=== PATIENT | female | born 1975 | race Caucasian/White ===

== ENCOUNTER → 2017-02-08 | Day surgery (SDC) | payer OTHER ==
[~2017-02-08] MED LIST: LACTATED RINGER'S 1000 ML INJ 1,000 ML ONE; PROPOFOL 200 MG/20 ML AMP IV ONE
--- NOTE | 2017-02-08 09:57 | GIPROC ---
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 TOPICAL ANESTHETIC: none CONSENT: The patient understands the risks and benefits of the procedure and understands that these risks include, but are not limited to: sedation, allergic reaction, infection, perforation and/or bleeding. Alternative means of evaluation and treatment include, among others: physical exam, x-rays, and/or surgical intervention. The patient elects to proceed with this endoscopic procedure. medical equipment was checked for proper function. Hand hygiene and appropriate measures for infection prevention was taken. After the risks, benefits and alternatives of the procedure were thoroughly explained, Informed consent was verified, confirmed and timeout was successfully executed by the treatment team. The patient was anesthetized with topical anesthesia and the EG-[id number] ([id number]) endoscope was introduced through the mouth and advanced to the second portion of the duodenum. Retroflexed views revealed a hiatal hernia The gastroscope was then slowly withdrawn and removed. Gastritis antrum-biopsy esophagitis distal esophagus -biopsy. ADVERSE EVENTS: There were no complications. IMPRESSIONS: 1. Gastritis antrum-biopsy esophagitis distal esophagus -biopsy 2. Retroflexed views revealed a hiatal hernia RECOMMENDATIONS: 1. Await biopsy results. Biopsy results will not be ready for 7-10 days. If you don't hear from us in two weeks, call our office for biopsy results. 2. Anti-reflux regimen 3. Avoid NSAIDS 4. Ok for surgery from gi point PATIENT CONDITION: stable DISPOSITION: Home REPEAT EXAM: Return 3 years EGD Nehal Rosales MD eSigned: Nehal Rosales MD 02/08/2017 9:57 AM cc: Libra Shetty [facility] Kendal Ahmadi M.D. PATIENT NAME: Jeniffer Kay MR#: [id number]
== END | disposition home or self-care (01) ==
LOC: ESDC 08:04
PROVIDERS: ATTEND Internal Medicine Gastroenterology
DX: K29.70 Gastritis, unspecified, without bleeding (principal); K20.9 Esophagitis, unspecified; K44.9 Diaphragmatic hernia without obstruction or gangrene
CPT/HCPCS: 00740; 43239; 88305; 88312; J3010; J7120

== ENCOUNTER 2017-03-24 05:13 | Inpatient (IN) | payer OTHER ==
[~2017-03-24] VITALS: Ht 162.6 cm; Wt 132.7 kg
[~2017-03-24 05:13] MED LIST changes: +ACETA500 PO; +BUPR150CR PO; +CETI10 PO; -LACTATED RINGER'S 1000 ML INJ 1,000 ML ONE; -PROPOFOL 200 MG/20 ML AMP IV ONE; +PROT40TA PO
[2017-03-24] MEDS ORDERED: ONDANSETRON HCL 4 MG/2 ML VIAL IV PUSH SCH (06:15)
[2017-03-24] MEDS ORDERED: LACTATED RINGER'S 1000 ML IV PRN (06:15)
[2017-03-24] MEDS ORDERED: POVIDONE IODINE 5% (ANTISEPSIS KIT) 4 APPLICATIONS EACH NARE PRN (06:15)
[2017-03-24] MEDS ORDERED: VANCOMYCIN 1,250 MG/NS 250 ML (for 70-84 kg) IV SCH ×2 (06:15)
[2017-03-24] MEDS ORDERED: metroNIDAZOLE 500 MG INJ 100 ML IV SCH (06:15)
[2017-03-24] MEDS ORDERED: SODIUM CHLORID 0.9% 500 ML IV PRN (06:15)
[2017-03-24] MEDS ORDERED: SCOPOLAMINE 1.5 MG PATCH T-DERMAL SCH (06:15)
[2017-03-24] MEDS ORDERED: METOPROLOL TARTRATE 25 MG TAB PO PRN (06:15)
[2017-03-24] MEDS ORDERED: CHLORHEXIDINE GLUCONATE 2 % 1 PACK (2 CLOTHS) TOPICAL PRN (06:15)
[2017-03-24] MEDS ORDERED: ACETAMINOPHEN 1000 MG/100 ML 100 ML IV SCH (06:15)
[2017-03-24] MEDS ORDERED: APREPITANT 40 MG CAP PO SCH (06:15)
[2017-03-24] MEDS ORDERED: BUPIVACAINE/EPINEPHRINE 0.25% 50 ML VIAL ONE (09:42)
[2017-03-24] MEDS ORDERED: METHYLENE BLUE 10 MG/ML VIAL OTHER ONE (11:23)
[2017-03-24] MEDS ORDERED: ENALAPRILAT 1.25 MG/ML VIAL IV PUSH PRN (12:15)
[2017-03-24] MEDS ORDERED: ACETAMINOPHEN 325MG/HYDROcodone 7.5MG/15ML UDC PO PRN ×2 (12:15)
[2017-03-24] MEDS ORDERED: diphenhydrAMINE HCL ELIXIR 12.5 MG/5 ML CUP PO PRN (12:15)
[2017-03-24] MEDS ORDERED: ONDANSETRON HCL 4 MG/2 ML VIAL IV PUSH PRN (12:15)
[2017-03-24] MEDS ORDERED: NALOXONE HCL 0.4 MG/ML AMP IV PUSH PRN (12:15)
[2017-03-24] MEDS ORDERED: MORPHINE SULFATE 30 MG/30 ML PCA IV SCH (12:15)
[2017-03-24] MEDS ORDERED: diphenhydrAMINE HCL 50 MG/ML VIAL IV PUSH PRN (12:15)
[2017-03-24] MEDS ORDERED: SODIUM CHLORIDE 0.9% FLUSH 10 ML FLUSH IV FLUSH PRN (12:15)
[2017-03-24] MEDS ORDERED: Post-op Orders (for Pharmacy) MISC OTHER ONE (12:33)
[2017-03-24] MEDS ORDERED: *RESP: ALBUTEROL 2.5 MG/3 ML NEB (PRN) PERIprocedural Use ONLY NEB ONE (12:57)
[2017-03-24] MEDS: D5-1/2 NS + KCL 20 MEQ INJ 1,000 ML IV SCH ×2 (13:30→21:03)
[2017-03-24] MEDS: METOCLOPRAMIDE HCL 10 MG/2 ML VIAL IV PUSH SCH ×2 (14:00→21:01)
[2017-03-24] MEDS ORDERED: DO NOT ADM ANY ANTICOAGULANT DRUGS PRN (15:15)
[2017-03-24] MEDS: RESP: ALBUTEROL 2.5 MG/3 ML NEB (SCH) INH ×2 (16:00→19:52)
[2017-03-24] MEDS ORDERED: ENOXAPARIN SODIUM 40 MG/0.4 ML SYRINGE SQ SCH (17:00)
[2017-03-24 17:37] VITALS: BP 107/52; PULSE 89; RESP 17; TEMP 98; O2SAT 95
[2017-03-24] MEDS: metroNIDAZOLE 500 MG INJ 100 ML IV SCH (18:01)
[2017-03-24 19:52] VITALS: O2SAT 95
[2017-03-24 20:00] VITALS: BP 99/56; PULSE 102; RESP 20; TEMP 97.9; O2SAT 97
[2017-03-24] MEDS: SODIUM CHLORIDE 0.9% FLUSH 10 ML FLUSH IV FLUSH SCH (21:00)
[2017-03-24] MEDS: PCA - TOTAL MG MORPHINE DELIVERED PER SHIFT SCH (22:00)
--- NOTE | 2017-03-24 22:22 | MP ---
cc: JETT BARRETO LARS S. MD DATE OF SURGERY 03/24/2017 DATE OF 1975 PREOPERATIVE DIAGNOSIS Morbid obesity with BMI of 50 complicated by dyslipidemia, gastroesophageal reflux disease. POSTOPERATIVE DIAGNOSIS Morbid obesity with BMI of 50 complicated by dyslipidemia, gastroesophageal reflux disease. PROCEDURE Laparoscopic Klaus-en-Y gastric bypass 100 cm Klaus limb antegastric antecolic. SURGEON Jett Barreto MD GIFTED PROGRAM TEACHER MD Dr. Gulshan Villegas's assistance was necessary for the procedure due to the complexity of the procedure. Dr. Gaffney was present for the entire procedure. He assisted in manipulation and exposure during the procedure. The operations and intelligence assistant provided by [employer] was utilized managing the camera during the procedure. ANESTHESIA General endotracheal anesthesia ESTIMATED BLOOD LOSS Scant FINDINGS Fatty liver SPECIMENS None COMPLICATIONS None OPERATION The patient was brought to the operating room and placed on the operating table in supine position, bilateral sequential inflation device placed on lower extremities, general anesthesia instituted, antibiotics initiated. The abdomen was prepped and draped sterilely. A point 18-cm distal to the xiphoid in the midline anesthetized with 0.25% Marcaine with epinephrine. The skin incision was made, a 5-mm OptiView port placed under direct vision and pneumoperitoneum was created. Under direct vision a 5-mm left upper quadrant, 12-mm left upper quadrant, 12-mm right upper quadrant and 5-mm right upper quadrant ports were placed. Prior to placement of all ports, the skin and peritoneum were anesthetized with 0.25% Marcaine with epinephrine. The patient's omentum was lifted into the upper abdomen. It was split down the middle to create a path for the Klaus limb. The ligament of Treitz was identified, a point 40 cm distal identified. The small bowel was divided in this region using an [place] Flex stapler vascular load reinforced with SeamGuard. The distal segment was brought up for a distance of 100 cm, enterotomy created in this region, enterotomy in the biliopancreatic limb and a [id number] stapled jejunojejunostomy created in the usual manner. The mesenteric defect at the jejunojejunostomy was closed with 2-0 Surgidac suture in a running manner. The patient was placed in reverse Trendelenburg position with the left side up. The Rochelle-Flex retractor was placed. The left lobe of the liver was retracted. The angle of His was taken down bluntly, a point 5 cm distal to the GE junction along the lesser curve identified, the lesser sac entered using blunt dissection. The stomach was partitioned horizontally using an [place]-Flex stapler blue load, an additional firing taken directed towards the angle of His to completely divide the stomach. A gastrotomy created in the new stomach, enterotomy in the Klaus limb and gastrojejunostomy created, stomal opening of 2 cm. An 18-Indonesian OG tube was placed across the anastomosis, the defect then closed in two layers of running 2-0 Vicryl. Prior to placement of the second layer, methylene blue instilled through the OG tube. There was no evidence of extravasation. Evicel was then placed over the gastrojejunostomy, jejunojejunostomy and all staple lines. The operative field inspected and hemostasis was present. The CO2 was released, all ports were removed. All skin incisions were closed with 4-0 Monocryl. The abdominal wall was cleaned and a sterile dressing placed. The patient was awakened and taken to the recovery room. MD TAHIR Gomez/CARLOS /4:34 PM /10:09 PM
[2017-03-24] MEDS: VANCOMYCIN INJ 1,000 MG in SODIUM CHLOR 0.9% 250 ML INJ 250 ML IV SCH (23:35)
[2017-03-25] VITALS (7 sets, daily range): BP systolic 88–122; BP diastolic 51–59; PULSE 87–94; RESP 17–20; TEMP 97.6–98.1; O2SAT 94–99
[2017-03-25] MEDS: RESP: ALBUTEROL 2.5 MG/3 ML NEB (SCH) INH ×4 (00:18→11:57)
[2017-03-25] MEDS: METOCLOPRAMIDE HCL 10 MG/2 ML VIAL IV PUSH SCH ×2 (02:31→09:59)
[2017-03-25] MEDS: metroNIDAZOLE 500 MG INJ 100 ML IV SCH ×2 (02:32→12:20)
[2017-03-25] MEDS: PCA - TOTAL MG MORPHINE DELIVERED PER SHIFT SCH (06:00)
[2017-03-25] MEDS: D5-1/2 NS + KCL 20 MEQ INJ 1,000 ML IV SCH ×2 (06:33→12:09)
[2017-03-25 07:38] LABS: AUTOMATED NEUTROPHIL # 8.3 TH/MM3 (1.8-7.7); BASOPHIL % 0.2 % (0.0-2.0); HEMO FLAGS DIFF FINAL; LYMPH % 13.9 % (9.0-44.0); LYMPHOCYTE # 1.4 TH/MM3 (1.0-4.8); MEAN CELL VOLUME 90.3 FL (80.0-100.0); MEAN CORPUSCULAR HEMOGLOBIN 30.4 PG (27.0-34.0); MEAN CORPUSCULAR HGB CONC 33.7 % (32.0-36.0); MONO % 6.5 % (0.0-8.0); NEUT % 79.4 % (16.0-70.0); PLATELET COUNT 195 TH/MM3 (150-450); RED BLOOD COUNT 3.77 MIL/MM3 (4.00-5.30); RED CELL DISTRIBUTION WIDTH 13.4 % (11.6-17.2); WHITE BLOOD COUNT 10.4 TH/MM3 (4.0-11.0)
[2017-03-25 07:52] LABS: BICARBONATE 22.9 MEQ/L (21.0-32.0); POTASSIUM 3.7 MEQ/L (3.5-5.1)
[2017-03-25] MEDS ORDERED: PANTOPRAZOLE SOD 40 MG DELAYED RELEASE TAB PO SCH (09:00)
[2017-03-25] MEDS: SODIUM CHLORIDE 0.9% FLUSH 10 ML FLUSH IV FLUSH SCH (10:00)
[2017-03-25] MEDS ORDERED: buPROPion HCL 150 MG SUSTAINED RELEASE TAB PO SCH (10:00)
[2017-03-25] MEDS: VANCOMYCIN INJ 1,000 MG in SODIUM CHLOR 0.9% 250 ML INJ 250 ML IV SCH (12:21)
[2017-03-25] MEDS ORDERED: METOCLOPRAMIDE HCL 10 MG/2 ML VIAL IV PUSH PRN (13:00)
--- NOTE | 2017-03-25 13:30 | HHI.PR ---
Subjective Subjective Notes Sitting up in bed Pain well controlled No GI complaints Tolerating PO fluids Objective Vitals/I&O Vital Signs Date Time Temp Pulse Resp B/P (MAP) Pulse Ox O2 Delivery O2 Flow Rate FiO2 03/25/17 12:00 97.7 91 17 122/58 (79) 96 03/25/17 07:53 21 03/25/17 04:16 4.00 03/24/17 17:00 Nasal Cannula Labs Laboratory Tests Test 03/25/17 06:45 White Blood Count 10.4 Red Blood Count 3.77 Hemoglobin 11.5 Hematocrit 34.0 Mean Corpuscular Volume 90.3 Mean Corpuscular Hemoglobin 30.4 Mean Corpuscular Hemoglobin Concent 33.7 Red Cell Distribution Width 13.4 Platelet Count 195 Mean Platelet Volume 7.4 Neutrophils (%) (Auto) 79.4 Lymphocytes (%) (Auto) 13.9 Monocytes (%) (Auto) 6.5 Eosinophils (%) (Auto) 0.0 Basophils (%) (Auto) 0.2 Neutrophils # (Auto) 8.3 Lymphocytes # (Auto) 1.4 Monocytes # (Auto) 0.7 Eosinophils # (Auto) 0.0 Basophils # (Auto) 0.0 CBC Comment DIFF FINAL Differential Comment Blood Urea Nitrogen 8 Creatinine 0.63 Random Glucose 134 Calcium Level 7.9 Magnesium Level 2.0 Sodium Level 140 Potassium Level 3.7 Chloride Level 110 Carbon Dioxide Level 22.9 Anion Gap 7 Estimat Glomerular Filtration Rate 103 Cardiovascular: Regular Lungs: Clear Abdomen: Post-op tenderness Extremities: Perfused Wound Wound : Wound Location: Abdomen Appearance: Clean & Dry A/P Assessment and Plan 41yo F POD#1 RNY -Continue to increase fluids as tolerated -Continue with frequent ambulation Discharge Planning D/C home today Carin Dawkins Mar 25, 2017 13:30
== END 2017-03-25 14:49 | disposition home or self-care (01) | DRG 621 ==
LOC: HSDI 05:13 → EDSTATUS 10:00 → N07B 17:22
PROVIDERS: ADMIT Surgery; ATTEND Surgery
PROC: 0D164ZA Bypass Stomach to Jejunum, Percutaneous Endoscopic Approach (ICD-10-PCS; principal; 2017-03-24 10:08)
DX: E66.01 Morbid (severe) obesity due to excess calories (principal); K76.0 Fatty (change of) liver, not elsewhere classified; E78.5 Hyperlipidemia, unspecified; Z68.43 Body mass index [BMI] 50.0-59.9, adult; K21.9 Gastro-esophageal reflux disease without esophagitis; R73.03 Prediabetes; Z87.891 Personal history of nicotine dependence
CPT/HCPCS: 80048; 83735; 85025; 94150; 94640; 94664; J1650; J2270; J2405; J2765; J3370; J3480; J7050; J7120; J7613; J8501